=== PATIENT | male | born 1985 | race African-American/Black ===

== ENCOUNTER 2019-09-02 02:48 | Emergency (ER) | payer OTHER ==
[~2019-09-02] VITALS: Ht 177.8 cm; Wt 76.7 kg
[2019-09-02 02:55] VITALS: Ht 177.8 cm; Wt 76.7 kg
[2019-09-02 04:35] VITALS: BP 131/80
== END 2019-09-02 04:35 | disposition home or self-care (01) ==
LOC: ED 02:48
DX: F31.9 Bipolar disorder, unspecified (principal); Z76.0 Encounter for issue of repeat prescription